=== PATIENT | male | born 1975 | race Caucasian/White ===

== ENCOUNTER 2019-08-04 07:55 | Emergency (ER) | payer OTHER ==
[2019-08-04] MEDS ORDERED: Tetracaine 0.5% OPHTH SOLN/PF 4 ML BOT ONE (08:13)
[2019-08-04] MEDS ORDERED: Fluorescein Opthalmic Strip ONE (08:13)
== END 2019-08-04 09:05 ==
LOC: MADERS 07:55
DX: H10.9 Unspecified conjunctivitis (principal); F17.210 Nicotine dependence, cigarettes, uncomplicated
CPT/HCPCS: 99283